=== PATIENT | female | born 1950 | race Hispanic/Latino ===

== ENCOUNTER 2022-01-14 13:32 | Inpatient (IN) | payer OTHER ==
[~2022-01-14] VITALS: Ht 157.5 cm; Wt 79.8 kg
[2022-01-14 14:45] LABS: BASOPHILS # (AUTO) 0.1 (0.0-0.1); BASOPHILS % 1.3 % (0.0-1.0); EOSINOPHILS # (AUTO) 0.3 (0.0-0.4); EOSINOPHILS % 5.9 % (0.0-6.0); HEMATOCRIT 46.3 % (34.2-44.1); HEMOGLOBIN 16.1 g/dL (12.0-16.0); LYMPHOCYTES # (AUTO) 1.6 (1.0-3.2); LYMPHOCYTES % 31.3 % (18.0-39.1); MEAN CORPUSCULAR HEMOGLOBIN 32.2 pg (28-32); MEAN CORPUSCULAR HGB CONC 34.8 g/dL (31-35); MEAN CORPUSCULAR VOLUME 92.6 fL (81-99); MONOCYTES # (AUTO) 0.6 (0.2-0.8); MONOCYTES % 11.1 % (4.4-11.3); NEUTROPHILS # (AUTO) 2.6 (2.1-6.9); PLATELET COUNT 96 x10e3/uL (140-360); RED CELL DISTRIBUTION WIDTH 14.2 % (11.7-14.4)
[2022-01-14 15:03] LABS: ALBUMIN 3.3 g/dL (3.5-5.0); ALBUMIN/GLOBULIN RATIO 0.9 (0.8-2.0); CALCIUM 9.9 mg/dL (8.4-10.2); CREATININE, SERUM 0.68 mg/dL (0.57-1.11)
[2022-01-14] MEDS ORDERED: Morphine 4mg INJECTION 4 MG/ML INJ IV PRN (15:30)
[2022-01-14] MEDS ORDERED: ONDANSETRON HCL INJ 2MG/ML 2ML 2 MG/ML VIAL IV PRN (15:30)
[2022-01-14] MEDS ORDERED: LACTULOSE SYRUP 20 GM/30 ML UDC PO PRN (15:30)
[2022-01-14 15:40] LABS: LIPASE 53 U/L (8-78)
[2022-01-14 15:42] LABS: CLARITY,URINE SL CLOUDY (CLEAR); COLOR,URINE AMBER (YELLOW); KETONES,URINE NEGATIVE (NEGATIVE); LEUKOCYTE ESTERASE ,URINE SMALL (NEGATIVE); NITRITE,URINE NEGATIVE (NEGATIVE); PROTEIN,URINE DIPSTICK 1+ (NEGATIVE); URINE UROBILINOGEN 1 mg/dL (0.2 - 1)
[2022-01-14 15:42] LABS: CREATINE KINASE 128 IU/L (29-168)
[2022-01-14 15:53] LABS: BACTERIA,URINE MANY /HPF; EPITHELIAL CELLS,URINE FEW /LPF; RBC,URINE 0-5 /HPF (0-5)
[2022-01-14 16:06] LABS: INR 1.07; PROTHROMBIN TIME 14.9 seconds (11.9-14.5)
[2022-01-14 16:07] LABS: PARTIAL THROMBOPLASTIN TIME 34.4 seconds (23.8-35.5)
[2022-01-14 17:09] VITALS: BP 145/73
[2022-01-14 17:30] VITALS: BP 145/73
[2022-01-14] MEDS ORDERED: NAMENDA10 MG PO (18:47)
[2022-01-14] MEDS ORDERED: LISINOPRIL10 MG PO (18:47)
[2022-01-14] MEDS ORDERED: ASPIRIN81 MG PO (18:47)
[2022-01-14] MEDS ORDERED: PROPRANOLOL HCL10 MG PO (18:47)
[2022-01-14] MEDS ORDERED: QUETIAPINE FUMA25 MG PO (18:47)
[2022-01-14] MEDS ORDERED: ARICEPT5 MG PO (18:47)
[2022-01-14 19:32] VITALS: BP 129/80
[2022-01-14 20:00] VITALS: BP 129/80
[2022-01-14 23:44] VITALS: BP 170/81
[2022-01-15 00:30] LABS: CREATINE KINASE MB 1.9 ng/mL (0-5.0)
[2022-01-15 04:00] VITALS: BP 150/73
[2022-01-15 07:34] LABS: BASOPHILS # (AUTO) 0.1 (0.0-0.1); BASOPHILS % 1.3 % (0.0-1.0); EOSINOPHILS # (AUTO) 0.4 (0.0-0.4); EOSINOPHILS % 7.8 % (0.0-6.0); HEMATOCRIT 43.7 % (34.2-44.1); HEMOGLOBIN 15.2 g/dL (12.0-16.0); LYMPHOCYTES # (AUTO) 1.4 (1.0-3.2); LYMPHOCYTES % 30.4 % (18.0-39.1); MEAN CORPUSCULAR HEMOGLOBIN 32.2 pg (28-32); MEAN CORPUSCULAR HGB CONC 34.8 g/dL (31-35); MEAN CORPUSCULAR VOLUME 92.6 fL (81-99); MONOCYTES # (AUTO) 0.5 (0.2-0.8); MONOCYTES % 10.3 % (4.4-11.3); NEUTROPHILS # (AUTO) 2.4 (2.1-6.9); NEUTROPHILS % 49.8 % (38.7-80.0); PLATELET COUNT 95 x10e3/uL (140-360); RED BLOOD COUNT 4.72 x10e6/uL (3.6-5.1); RED CELL DISTRIBUTION WIDTH 14.3 % (11.7-14.4)
[2022-01-15 08:00] VITALS: BP 129/93
[2022-01-15 08:10] VITALS: BP 129/93
[2022-01-15 08:20] LABS: CREATINE KINASE 92 IU/L (29-168)
[2022-01-15 08:29] LABS: ALBUMIN 2.9 g/dL (3.5-5.0); ALBUMIN/GLOBULIN RATIO 0.9 (0.8-2.0); ANION GAP 15.5 mmol/L (8-16); CREATININE, SERUM 0.65 mg/dL (0.57-1.11); POTASSIUM 3.5 mmol/L (3.5-5.1)
[2022-01-15] MEDS ORDERED: IOPAMIDOL 370 MG/ML 100 ML INFUS..BTL INJ ONE (09:36)
[2022-01-15] MEDS ORDERED: SODIUM CHLORIDE 0.9% 250ML 250 ML ONE (10:30)
[2022-01-15] MEDS: LACTULOSE SYRUP 20 GM/30 ML UDC PO SCH ×3 (10:37→22:48)
[2022-01-15] MEDS: SPIRONOLACTONE 25 MG TAB PO SCH (10:37)
[2022-01-15] MEDS: FUROSEMIDE INJ 10 MG/ML 4 ML VIAL IV SCH (10:37)
[2022-01-15 13:39] VITALS: BP 142/99
[2022-01-15 16:27] VITALS: BP 139/82
[2022-01-15 20:00] VITALS: BP 121/73
[2022-01-16] VITALS (7 sets, daily range): BP systolic 124–147; BP diastolic 68–92
[2022-01-16 07:08] LABS: BASOPHILS # (AUTO) 0.1 (0.0-0.1); BASOPHILS % 1.4 % (0.0-1.0); EOSINOPHILS # (AUTO) 0.4 (0.0-0.4); EOSINOPHILS % 9.5 % (0.0-6.0); HEMATOCRIT 43.6 % (34.2-44.1); HEMOGLOBIN 14.9 g/dL (12.0-16.0); LYMPHOCYTES # (AUTO) 1.2 (1.0-3.2); LYMPHOCYTES % 29.1 % (18.0-39.1); MEAN CORPUSCULAR HEMOGLOBIN 31.8 pg (28-32); MEAN CORPUSCULAR HGB CONC 34.2 g/dL (31-35); MONOCYTES # (AUTO) 0.5 (0.2-0.8); MONOCYTES % 11.2 % (4.4-11.3); NEUTROPHILS % 48.6 % (38.7-80.0); PLATELET COUNT 94 x10e3/uL (140-360); RED BLOOD COUNT 4.69 x10e6/uL (3.6-5.1); RED CELL DISTRIBUTION WIDTH 14.2 % (11.7-14.4)
[2022-01-16 07:38] LABS: ANION GAP 13.4 mmol/L (8-16); CALCIUM 9.1 mg/dL (8.4-10.2); CHOL/HDL RATIO 2.4 (3.0-3.6); CREATININE, SERUM 0.72 mg/dL (0.57-1.11); POTASSIUM 3.4 mmol/L (3.5-5.1)
[2022-01-16 08:03] LABS: THYROID STIMULATING HORMONE 1.636 uIU/mL (0.350-4.940)
[2022-01-16] MEDS ORDERED: POTASSIUM CHLORIDE 10MEQ EA PO ONE (08:45)
[2022-01-16] MEDS: PROPRANOLOL HCL 40 MG TAB PO SCH ×2 (09:00→17:00)
[2022-01-16] MEDS: LACTULOSE SYRUP 20 GM/30 ML UDC PO SCH ×3 (09:00→20:25)
[2022-01-16] MEDS: SPIRONOLACTONE 25 MG TAB PO SCH (09:00)
[2022-01-16] MEDS ORDERED: RIFAXIMIN 200 MG TAB PO SCH (09:00)
[2022-01-16] MEDS: FUROSEMIDE INJ 10 MG/ML 4 ML VIAL IV SCH (09:45)
[2022-01-16] MEDS: RIFAXIMIN 550 MG TABLET PO SCH (17:00)
[2022-01-17] VITALS: BP 123/56
[2022-01-17 04:00] VITALS: BP 136/82
[2022-01-17 05:39] LABS: ANION GAP 15.9 mmol/L (8-16); CALCIUM 9.3 mg/dL (8.4-10.2); CREATININE, SERUM 0.73 mg/dL (0.57-1.11); POTASSIUM 3.9 mmol/L (3.5-5.1)
[2022-01-17 08:21] VITALS: BP_SYST 103; BP_SYST 134; BP_DIAS 55; BP_DIAS 86
[2022-01-17 08:24] VITALS: BP 103/55
[2022-01-17] MEDS: RIFAXIMIN 550 MG TABLET PO SCH (08:56)
[2022-01-17] MEDS: SPIRONOLACTONE 25 MG TAB PO SCH (08:56)
[2022-01-17] MEDS: LACTULOSE SYRUP 20 GM/30 ML UDC PO SCH (08:57)
[2022-01-17] MEDS: PROPRANOLOL HCL 40 MG TAB PO SCH (08:57)
[2022-01-17] MEDS: FUROSEMIDE INJ 10 MG/ML 4 ML VIAL IV SCH (09:00)
[2022-01-18] MEDS ORDERED: FUROSEMIDE 40 MG TAB PO SCH (09:00)
== END 2022-01-17 12:30 | disposition home or self-care (01) | DRG 432 ==
LOC: ER 13:40 → ERHOLD 15:21 → MED/SURG 17:09 → OBSVTOIN 01-15 08:59
PROVIDERS: ADMIT Internal Medicine; ATTEND Internal Medicine
DX: K74.60 Unspecified cirrhosis of liver (principal); K72.00 Acute and subacute hepatic failure without coma; D61.818 Other pancytopenia; K76.6 Portal hypertension; R18.8 Other ascites; B19.20 Unspecified viral hepatitis C without hepatic coma; K72.10 Chronic hepatic failure without coma; I10 Essential (primary) hypertension; R16.0 Hepatomegaly, not elsewhere classified; Z86.19 Personal history of other infectious and parasitic diseases; T47.3X6A Underdosing of saline and osmotic laxatives, initial encounter
CPT/HCPCS: 0223U; 36415; 70450; 74177; 80048; 80053; 80061; 80320; 81001; 82105; 82140; 82550; 82553; 82607; 82746; 83690; 84443; 84484; 85025; 85610; 85730; G0378; J0696; J1940; J7050; Q9967

== ENCOUNTER 2022-03-15 20:34 | Emergency (ER) | payer OTHER ==
[~2022-03-15] VITALS: Ht 157.5 cm; Wt 79.8 kg
[~2022-03-15 20:34] MED LIST: ARICEPT5 MG PO; ASPIRIN81 MG PO; LISINOPRIL10 MG PO; NAMENDA10 MG PO; PROPRANOLOL HCL10 MG PO; QUETIAPINE FUMA25 MG PO
[2022-03-15 21:08] LABS: BASOPHILS % 0.6 % (0.0-1.0); EOSINOPHILS # (AUTO) 0.2 (0.0-0.4); EOSINOPHILS % 3.6 % (0.0-6.0); HEMATOCRIT 43.5 % (34.2-44.1); HEMOGLOBIN 14.7 g/dL (12.0-16.0); LYMPHOCYTES # (AUTO) 1.3 (1.0-3.2); LYMPHOCYTES % 28.1 % (18.0-39.1); MEAN CORPUSCULAR HEMOGLOBIN 32.1 pg (28-32); MEAN CORPUSCULAR HGB CONC 33.8 g/dL (31-35); MONOCYTES # (AUTO) 0.8 (0.2-0.8); MONOCYTES % 15.9 % (4.4-11.3); NEUTROPHILS # (AUTO) 2.5 (2.1-6.9); NEUTROPHILS % 51.4 % (38.7-80.0); RED BLOOD COUNT 4.58 x10e6/uL (3.6-5.1); RED CELL DISTRIBUTION WIDTH 13.4 % (11.7-14.4)
[2022-03-15 21:09] LABS: PLATELET COUNT 90 x10e3/uL (140-360)
[2022-03-15 21:24] LABS: ALBUMIN 3.3 g/dL (3.5-5.0); ALBUMIN/GLOBULIN RATIO 1.1 (0.8-2.0); ANION GAP 12.1 mmol/L (8-16); CALCIUM 8.7 mg/dL (8.4-10.2); CREATININE, SERUM 0.72 mg/dL (0.57-1.11); POTASSIUM 4.1 mmol/L (3.5-5.1)
[2022-03-15 21:31] LABS: CREATINE KINASE MB 2.1 ng/mL (0-5.0)
[2022-03-15] MEDS ORDERED: IOPAMIDOL 370 MG/ML 100 ML INFUS..BTL INJ ONE (21:54)
[2022-03-15] MEDS ORDERED: SODIUM CHLORIDE 0.9% 100 ML ONE (21:55)
[2022-03-15] MEDS ORDERED: VENTOLIN HFA18 GM INH (22:39)
[2022-03-15] MEDS ORDERED: AZITHROMYCIN250 MG PO (22:39)
[2022-03-15] MEDS ORDERED: PREDNISONE20 MG PO (22:39)
[2022-03-15 22:49] VITALS: BP 143/100
== END 2022-03-15 22:51 | disposition home or self-care (01) ==
LOC: ER 20:52
DX: R06.00 Dyspnea, unspecified (principal); U07.1 COVID-19; R07.89 Other chest pain; R05.9 Cough, unspecified; I10 Essential (primary) hypertension; B19.20 Unspecified viral hepatitis C without hepatic coma
CPT/HCPCS: 36415; 71260; 80053; 82550; 82553; 83690; 83880; 84484; 85025; 85379; 93005; 99284; J7050; Q9967